=== PATIENT | female | born 1940 | race Caucasian/White ===

== ENCOUNTER → 2017-07-23 | Day surgery (SDC) | payer OTHER ==
[~2017-07-23] MED LIST: BALANCED SALT SOLN (OPTH) 15 ML BTL IO PRN; CALTRATE 600 W1 EACH PO; CEFTRIAXONE SOD 1 GM VIAL ONE; CELLCEPT250 MG PO; DEXAMETHASONE SOD PHOS INJ 4 MG/ML VIAL ONE; HYDROCHLOROTHIA25 MG PO; LANTUS100 UNITS/; LEVOTHROID100 MCG PO; LIDOCAINE HCL 2% LOCAL INJ 5 ML SDV VIAL INJ ONE; LISINOPRIL10 MG PO; MESTINON60 MG PO; MULTI-VITAMIN1 EACH PO; NOVOLOG100 UNITS/; OMEGA-31000 MG PO; OMEPRAZOLE40 MG PO; ONDANSETRON HCL INJ 2 MG/ML VIAL ONE; POTASSIUM CHLO10 ME1 PO; PROPOFOL IV EMULSION 10 MG/ML 20 ML VIAL ONE; SEVOFLURANE INHAL SOLN 250 ML PEN BTL ONE; WELCHOL625 MG PO
--- OUTSIDE RECORDS SUMMARY | 2017-07-23 05:15 | XMS REPORT | Clinical Summary ---
Author Author [facility] Organization [facility] Address Unknown Phone Unavailable Care Team Providers Care [facility] [employer] Name Role Phone Goldie Ang MD PCP Allergies No Known Allergies Current Medications Prescription Sig. Disp. Refills Start End Date Status Date cholecalciferol, vitamin Take by mouth. Active D3, 5,000 unit tablet insulin ASPART (NovoLOG) Inject 16 Units under the 12/27/19 Active 100 unit/mL injection skin. 11 levothyroxine (SYNTHROID, Take 50 mcg by mouth. 12/27/19 Active LEVOXYL) 25 mcg tablet 11 MULTIVITAMIN (MULTIPLE Take by mouth. Active VITAMIN ESSENTIAL ORAL) omeprazole (PriLOSEC) 20 Take 20 mg by mouth. 01/15/20 Active MG capsule 11 potassium chloride Take by mouth. Active (K-DUR) 20 MEQ CR tablet tiZANidine (ZANAFLEX) 2 Take 2 mg by mouth. 01/30/20 Active MG tablet 11 pyridostigmine (MESTINON) Take by mouth. 08/16/19 Active 60 mg tablet 11 alendronate (FOSAMAX) 70 Take 70 mg by mouth every Active MG tablet 7 days. Take in the morning with a full glass of water, on an empty stomach, and do not take anything else by mouth or lie down for the next 30 min. hydroCHLOROthiazide 12/19/19 Active (HYDRODIURIL) 12.5 MG 17 tablet glimepiride (AMARYL) 1 MG 09/23/19 Active tablet 17 WELCHOL 625 mg tablet 12/09/19 Active 17 pyridostigmine (MESTINON) TAKE ONE-HALF TABLET BY 90 tablet 0 Active 60 mg tablet MOUTH EVERY 4 TO 6 HOURS 18 lisinopril 04/01/19 Active (PRINIVIL,ZESTRIL) 5 mg 18 tablet UNABLE TO FIND Med Name: Move suppliment Active UBIDECARENONE (COQ-10 Take by mouth. Active ORAL) cyanocobalamin 100 MCG Take 200 mcg by mouth Active tablet daily. ERGOCALCIFEROL, VITAMIN Take 10,000 Units by Active D2, (VITAMIN D2 ORAL) mouth. UNABLE TO FIND Med Name: Grow bone Active suppliment folic acid (FOLVITE) 800 Take 400 mcg by mouth Active MCG tablet daily. pyridostigmine (MESTINON) TAKE ONE-HALF TABLET BY 90 tablet 0 07/31/19 Discontin 60 mg tablet MOUTH EVERY 4 TO 6 HOURS 17 17 ued lisinopril Take 20 mg by mouth. 12/27/19 06/16/19 Discontin (PRINIVIL,ZESTRIL) 20 mg 11 18 ued tablet pyridostigmine (MESTINON) TAKE ONE-HALF TABLET BY 90 tablet 0 10/17/19 Discontin 60 mg tablet MOUTH EVERY 4 TO 6 HOURS 17 17 ued pyridostigmine (MESTINON) TAKE ONE-HALF TABLET BY 90 tablet 0 01/16/20 Discontin 60 mg tablet MOUTH EVERY 4 TO 6 HOURS 17 17 ued pyridostigmine (MESTINON) TAKE ONE-HALF TABLET BY 90 tablet 0 04/25/19 Discontin 60 mg tablet MOUTH EVERY 4 TO 6 HOURS 17 18 ued Active Problems Problem Noted Date Myasthenia gravis 12/24/2016 Encounters Date Type Specialty Care Team Description 06/15/2017 Office Visit Neurology Cady Arellano MD Myasthenia gravis (Primary Dx) 04/25/2017 Refill Neurology Cady Arellano MD 01/15/2017 Refill Neurology Cady Arellano MD 12/24/2016 Office Visit Neurology Cady Arellano MD Myasthenia gravis (Primary Dx) 12/18/2016 Telephone Neurology Cady Arellano MD 10/16/2016 Refill Neurology Cady Arellano MD 07/30/2016 Refill Neurology Cady Arellano MD after 07/22/2016 Social History Tobacco Use Types Packs/Day Years Used Date Never Smoker Smokeless Tobacco: Never Used Sex Assigned at Date Recorded Not on file Last Filed Vital Signs Vital Sign Reading Time Taken Blood Pressure 143/93 06/15/2017 3:19 PM CDT Pulse 52 06/15/2017 3:19 PM CDT Temperature - - Respiratory Rate - - Oxygen Saturation - - Inhaled Oxygen - - Concentration Weight 66.4 kg (146 lb 6.4 oz) 06/15/2017 3:19 PM CDT Height 158.8 cm (5' 2.5") 06/15/2017 3:19 PM CDT Body Mass Index 26.35 06/15/2017 3:19 PM CDT Plan of Treatment Date Type Specialty Care Team Description 02/15/2018 Office Visit Neurology Cady Arellano MD [id number] [facility] [address] [place] [address] Health Maintenance Due Date Last Done Comments SHINGRIX VACCINE (#1) 1991 ZOSTER VACCINE 2001 PNEUMOCOCCAL-13 2006 INFLUENZA VACCINE 10/13/2017 11/13/2010, 12/16/2009 PNEUMOCOCCAL Completed 03/18/2008 POLYSACCHARIDE VACCINE AGE 65 AND OVER Results Not on fileafter 07/22/2016 Insurance Payer Benefit Subscriber ID Type Phone Address Plan / Group [employer] xxxxxxxxx HMO [facility] Home: [facility] [id number] [id number]
--- NOTE | 2017-07-23 06:37 | Diagnostic Imaging Report ---
ABDOMEN-1VIEW (KUB) Clinical history: Preoperative] kidney stone Technique: AP view abdomen Comparison: None Findings: Abdomen: Copious stool burden. Clips overlie the upper abdomen Other: Right double-J ureteral stent is noted. 1.1 cm and 1.4 cm stones overlies the superior pigtail of the stent. Degenerative changes of the spine with possible L1 and L2-loss. Impression: 1.1 cm and 1.4 cm stones project over the superior pigtail of the right ureteral stent. Signed by: Dr Ana Sosa MD on 07/23/2017 6:33 AM
--- NOTE | 2017-07-23 07:50 | Operative Report ---
DATE OF PROCEDURE: July 23, 2017 PREOPERATIVE DIAGNOSES 1. Greater than 3 cm right kidney stone burden. 2. Indwelling right ureteral stent. POSTOPERATIVE DIAGNOSES 1. Greater than 3 cm right kidney stone burden. 2. Indwelling right ureteral stent. 3. Hydronephrosis. PROCEDURES 1. Cystourethroscopy with complicated removal of right indwelling stent (entirely separate procedure for encrusted right ureteral stent). 2. Cystourethroscopy with placement of right indwelling stent (entirely separate procedure for the hydronephrosis). 3. Staged right-sided shock wave lithotripsy (entirely separate procedure for greater than 3 cm stone burden in a staged sandwich fashion). 4. Supervision of fluoroscopy. ANESTHESIA: General. ESTIMATED BLOOD LOSS: Minimal. COMPLICATIONS: None. INDICATIONS FOR PROCEDURE: Ms. Sweeney is a very pleasant 77-year-old female with a history of very large right renal calculi sitting in a staged fashion for sandwich therapy. She and I had a long discussion about alternatives, risks and benefits, including removing stents and she elected to proceed. PROCEDURE IN DETAIL: After informed consent was obtained, the patient was taken to the operative suite, and placed supine on the operating table, and underwent general anesthesia by the anesthesia service. She was placed in the dorsal lithotomy position, and sterilely prepped and draped for cystoscopy. A 22.5-Urdu cystoscope was inserted per urethra and placed into the bladder. There were no tumors. No stones. 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 Guidewire had been attempted to pass this. It was encrusted and it failed. Guidewire was then inserted and seen to coil in the level of the renal pelvis under fluoroscopy. A 7 x 26 cm ureteral stent was deployed with the coil in the renal pelvis and coil in the bladder. The patient's bladder was then drained. The stone was then localized in the X, Y and Z planes. A total of 3000 shocks at a maximum power setting of 6 were delivered to the stone. The patient tolerated the procedure well and was transported to the recovery room in excellent condition. SUPERVISION OF FLUOROSCOPY: I was present throughout the entire procedure and I supervised the use of fluoroscopy as no radiologist was present. Job#: [id number] MARIA ISABEL
== END | disposition home or self-care (01) ==
LOC: OR 05:12
PROVIDERS: ATTEND Urology
DX: N13.2 Hydronephrosis with renal and ureteral calculous obstruction (principal); Z46.6 Encounter for fitting and adjustment of urinary device; I10 Essential (primary) hypertension; K21.9 Gastro-esophageal reflux disease without esophagitis; G70.00 Myasthenia gravis without (acute) exacerbation; E11.9 Type 2 diabetes mellitus without complications; Z01.810 Encounter for preprocedural cardiovascular examination; Z01.812 Encounter for preprocedural laboratory examination; Z88.6 Allergy status to analgesic agent; Z88.1 Allergy status to other antibiotic agents; Z88.5 Allergy status to narcotic agent
CPT/HCPCS: 36415; 50590; 52332; 74018; 82948; C2617; J0696; J1100; J2001; J2405